=== PATIENT | female | born 1995 | race Caucasian/White ===

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

== ENCOUNTER 2017-10-16 22:59 | Emergency (ER) | payer OTHER ==
[2017-10-16] MEDS ORDERED: Ketorolac INJ* 30 MG/ML 1 ML VIAL IV PUSH ONE (23:22)
[2017-10-16 23:37] LABS: ABS Basophils 0.1 10^3/ul (0-0.2); ABS Eosinophils 0.2 10^3/ul (0-0.6); ABS Lymphocytes 3.4 10^3/ul (1.0-4.8); ABS Monocytes 0.9 10^3/ul (0-0.8); ABS Neutrophils 4.7 10^3/ul (1.5-7.7); ABS Nucleated RBC 0 10^3/ul; Hematocrit 39 % (35-47); Hemoglobin 13.2 g/dl (12.0-16.0); Lymphocyte % 36.9 % (25-47); Mean Corpuscular HGB Conc 34 g/dl (31-36); Mean Corpuscular Hemoglobin 29 pg (27-31); Mean Corpuscular Volume 85 fL (80-97); Mean Platelet Volume 7.5 um3 (7.4-10.4); Nucleated Red Blood Cells % 0.1; Platelet Count 305 10^3/ul (150-450); Red Blood Count 4.55 10^6/ul (4.0-5.4); Red Cell Distribution Width 13 % (10.5-15); White Blood Count 9.2 10^3/ul (3.5-10.8)
[2017-10-16 23:56] LABS: EGFR Non-African American 92.8 (>60)
[2017-10-17 00:48] VITALS: BP 117/65
--- NOTE | 2017-10-17 03:25 | ED ---
Edna Plascencia Emily, scribed for Go Leggett MD on 10/16/17 at 2325 . Abdominal Pain/Female - HPI Summary HPI Summary: This patient is a 22 year old F presenting to [facility] accompanied by friend with a chief complaint of LUQ abd pain radiating to left shoulder that began 2 days ago. The patient rates the pain 7/10 in severity. Symptoms aggravated by nothing. Symptoms alleviated by nothing. Patient reports SOB and slight cough. Patient denies fever and chills. - History of Current Complaint Chief Complaint: EDGeneral Stated Complaint: FLANK PAIN Time Seen by Provider: 10/16/17 23:16 Hx Obtained From: Patient Onset/Duration: Sudden Onset, Lasting Days, Still Present Timing: Constant Severity Initially: Severe Severity Currently: Severe Pain Intensity: 7 Pain Scale Used: 0-10 Numeric Location: Discrete At: LUQ Radiates: Yes Radiates to: Other - Positive L shoulder Aggravating Factor(s): Nothing Alleviating Factor(s): Nothing Associated Signs and Symptoms: Positive: Cough, Other: - Positive slight cough. Negative fever and chills Allergies/Adverse Reactions: Allergies Allergy/AdvReac Type Severity Reaction Status Date / Time No Known Allergies Allergy Verified 10/16/17 23:00 PMH/Surg Hx/FS Hx/Imm Hx Previously Healthy: No Endocrine/Hematology History: Denies: Hx Anticoagulant Therapy, Hx Blood Disorders Neurological History: Reports: Other Neuro Impairments/Disorders - previous concussions Denies: Hx Headaches Infectious Disease History: No Infectious Disease History: Denies: Traveled Outside the [place] in Last 30 Days - Family History Known Family History: Positive: None, Other - Negative pulmonary embolism - Social History Occupation: Student Lives: Dormitory/Roommates Alcohol Use: Occasionally Hx Substance Use: No Substance Use Type: Reports: None Hx Tobacco Use: No Smoking Status (MU): Never Smoked Tobacco Review of Systems Negative: Fever, Chills Positive: Shortness Of Breath, Cough Positive: Abdominal Pain All Other Systems Reviewed And Are Negative: Yes Physical Exam - Summary Physical Exam Summary: Appearance: Well appearing, no pain distress Skin: warm, dry, reflects adequate perfusion Head/face: normal Eyes: EOMI, KEELY ENT: normal Neck: supple, non-tender Respiratory: CTA, breath sounds present, tenderness in left chest wall Cardiovascular: RRR, pulses symmetrical Abdomen: non-tender, soft Bowel Sounds: present Musculoskeletal: normal, strength/ROM intact Neuro: normal, sensory motor intact, A&Ox3 Triage Information Reviewed: Yes Vital Signs On Initial Exam: Initial Vitals Temp Pulse Resp BP Pulse Ox 97.5 F 79 16 154/87 100 10/16/17 23:00 10/16/17 23:00 10/16/17 23:00 10/16/17 23:00 10/16/17 23:00 Vital Signs Reviewed: Yes Diagnostics - Vital Signs Vital Signs Temp Pulse Resp BP Pulse Ox 10/16/17 23:00 97.5 F 79 16 154/87 100 - Laboratory Lab Results: Lab Results 10/16/17 10/16/17 10/16/17 Range/Units 23:25 23:25 23:25 WBC 9.2 (3.5-10.8) 10^3/ul RBC 4.55 (4.0-5.4) 10^6/ul Hgb 13.2 (12.0-16.0) g/dl Hct 39 (35-47) % MCV 85 (80-97) fL MCH 29 (27-31) pg MCHC 34 (31-36) g/dl RDW 13 (10.5-15) % Plt Count 305 (150-450) 10^3/ul MPV 7.5 (7.4-10.4) um3 Neut % (Auto) 51.1 (38-83) % Lymph % (Auto) 36.9 (25-47) % Elliott % (Auto) 9.3 H (0-7) % Eos % (Auto) 2.0 (0-6) % Baso % (Auto) 0.7 (0-2) % Absolute Neuts (auto) 4.7 (1.5-7.7) 10^3/ul Absolute Lymphs (auto) 3.4 (1.0-4.8) 10^3/ul Absolute Monos (auto) 0.9 H (0-0.8) 10^3/ul Absolute Eos (auto) 0.2 (0-0.6) 10^3/ul Absolute Basos (auto) 0.1 (0-0.2) 10^3/ul Absolute Nucleated RBC 0 10^3/ul Nucleated RBC % 0.1 D-Dimer, Quantitative < 200 (Less Than 230) ng/mL Sodium 138 L (139-145) mmol/L Potassium 4.0 (3.5-5.0) mmol/L Chloride 104 (101-111) mmol/L Carbon Dioxide 27 (22-32) mmol/L Anion Gap 7 (2-11) mmol/L BUN 13 (6-24) mg/dL Creatinine 0.79 (0.51-0.95) mg/dL Est GFR ( Amer) 119.3 (>60) Est GFR (Non-Af Amer) 92.8 (>60) BUN/Creatinine Ratio 16.5 (8-20) Glucose 98 (70-100) mg/dL Calcium 9.5 (8.6-10.3) mg/dL Result Diagrams: 10/16/17 23:25 10/16/17 23:25 Lab Statement: Any lab studies that have been ordered have been reviewed, and results considered in the medical decision making process. - Radiology CXR Radiology Interpretation Completed By: ED Physician - CXR reveals, per ED physician, no acute findings - EKG 2339 Cardiac Rate: NL EKG Rhythm: Sinus Rhythm - [address] Segment: Normal EKG Interpretation: Nml axis intervals Re-Evaluation - Re-Evaluation First Eval Re-Evaluation Time: 00:30 Change: Improved Comment: Symptoms resolved with torridol Abdominal Pain Fem Course/Dx - Course Course Of Treatment: Left-sided chest pain without significant cough or wheezing. Pain is improved with Toradol. X-ray is negative and d-dimer is not detected. Patient discharged to follow up with primary care physician on when necessary NSAID. - Diagnoses Differential Diagnosis: Positive: ACS, Peptic Ulcer Disease, Pneumonia, Other - Pulmonary embolism Provider Diagnoses: Chest wall pain Discharge - Sign-Out/Discharge Documenting (check all that apply): Discharge/Admit/Transfer - Discharge - Discharge Plan Condition: Stable Disposition: HOME Patient Education Materials: Chest Wall Pain (ED) Referrals: [facility] [Primary Care Provider] - 1 Day (Follow up on 10/18.) Additional Instructions: Take Tylenol and Ibuprofen as needed. Deep breathing exercises. Return to the ED for new or worsening symptoms. - Billing Disposition and Condition Condition: STABLE Disposition: HOME The documentation as recorded by the Edna olmedo Emily accurately reflects the service I personally performed and the decisions made by Betsey lewis Kirk, MD.
--- NOTE | 2017-10-17 09:42 | RAD ---
INDICATION: Chest pain and flank pain. COMPARISON: No relevant prior exams available on the [facility] PACS for comparison. TECHNIQUE: Dual energy PA and routine lateral views of the chest were obtained. REPORT: Clear lungs and pleural spaces. Negative for pneumothorax. The heart, pulmonary vasculature, and mediastinal contours are unremarkable. Unremarkable osseous structures and soft tissue contours. IMPRESSION: No evidence for acute intrathoracic disease.
== END 2017-10-17 00:48 | disposition home or self-care (01) ==
LOC: ED 22:59
DX: R07.89 Other chest pain (principal)
CPT/HCPCS: 36415; 71046; 80048; 85025; 85379; 93005; 96374; 99283; J1885

== ENCOUNTER 2018-08-11 02:51 | Emergency (ER) | payer OTHER ==
[2018-08-11] MEDS ORDERED: NS 0.9% 1000 ML** 1,000 ML IV ONE (03:04)
[2018-08-11] MEDS ORDERED: Morphine VIAL* 10 MG/ML 1 ML VIAL IV ONE (03:05)
[2018-08-11] MEDS ORDERED: Metoclopramide IV* 5 MG/ML 2 ML VIAL IV SLOW PU ONE (03:05)
[2018-08-11] MEDS ORDERED: Ketorolac INJ* 30 MG/ML 1 ML VIAL IV PUSH ONE (03:05)
--- NOTE | 2018-08-11 03:09 | ED ---
Abdominal Pain/Female - HPI Summary HPI Summary: A 22 y/o female presents to [facility] with a chief complaint of right flank pain since 19:00 08/09/18. The patient came to the ED on 08/10/18 when she was diagnosed with a UTI. She reports that she had difficulty urinating the morning of 08/10/18 and that she was near syncope when waiting in line at [facility] [employer]. She also reports N/V. She denies burning with urinating. She went to [facility] who referred the patient back to the ED. She denies a PMHx and claims that she has not had problems like this before. Her LNMP was . At triage the patient rated her pain as an 8/10 in severity. - History of Current Complaint Chief Complaint: EDUrogenitalProblems Stated Complaint: FLANK PAIN Hx Obtained From: Patient Hx Last Menstrual Period: 07/15/18 Onset/Duration: Sudden Onset, Lasting Days, Still Present Timing: Constant Severity Initially: Severe Severity Currently: Severe Pain Intensity: 8 Pain Scale Used: 0-10 Numeric Location: Flank - right Radiates: No Character: Not Applicable Aggravating Factor(s): Nothing Alleviating Factor(s): Nothing Associated Signs and Symptoms: Positive: Nausea, Vomiting, Other: - difficulty urinating but no burning. Negative: Fever Allergies/Adverse Reactions: Allergies Allergy/AdvReac Type Severity Reaction Status Date / Time No Known Allergies Allergy Verified 08/11/18 02:56 PMH/Surg Hx/FS Hx/Imm Hx Endocrine/Hematology History: Denies: Hx Anticoagulant Therapy, Hx Blood Disorders, Hx Diabetes Cardiovascular History: Denies: Hx Hypertension Neurological History: Reports: Other Neuro Impairments/Disorders - previous concussions Denies: Hx Headaches Infectious Disease History: No Infectious Disease History: Denies: Traveled Outside the [place] in Last 30 Days - Family History Known Family History: Positive: Other - Negative pulmonary embolism - Social History Alcohol Use: Occasionally Hx Substance Use: No Substance Use Type: Reports: None Hx Tobacco Use: No Smoking Status (MU): Never Smoked Tobacco Review of Systems Negative: Fever Positive: Abdominal Pain, Vomiting, Nausea Positive: other - Positive: difficulty urinating but no burning All Other Systems Reviewed And Are Negative: Yes Physical Exam - Summary Physical Exam Summary: VITAL SIGNS: Reviewed. GENERAL: Patient is a well-developed and nourished FEMALE who is lying comfortable in the stretcher. Patient is not in any acute respiratory distress. HEAD AND FACE: No signs of trauma. No ecchymosis, hematomas or skull depressions. No sinus tenderness. EYES: PERRLA, EOMI x 2, No injected conjunctiva, no nystagmus. EARS: Hearing grossly intact. Ear canals and tympanic membranes are within normal limits. MOUTH: Oropharynx within normal limits. NECK: Supple, trachea is midline, no adenopathy, no JVD, no carotid bruit, no c- spine tenderness, neck with full ROM. CHEST: Symmetric, no tenderness at palpation LUNGS: Clear to auscultation bilaterally. No wheezing or crackles. CVS: Regular rate and rhythm, S1 and S2 present, no murmurs or gallops appreciated. ABDOMEN: Soft, Right CVA tenderness. No signs of distention. No rebound no guarding, and no masses palpated. Bowel sounds are normal. EXTREMITIES: FROM in all major joints, no edema, no cyanosis or clubbing. NEURO: Alert and oriented x 3. No acute neurological deficits. Speech is normal and follows commands. SKIN: Dry and warm Triage Information Reviewed: Yes Vital Signs On Initial Exam: Initial Vitals Temp Pulse Resp BP Pulse Ox 97.5 F 95 20 125/70 100 08/11/18 02:53 08/11/18 02:53 08/11/18 02:53 08/11/18 02:53 08/11/18 02:53 Vital Signs Reviewed: Yes Diagnostics - Vital Signs Vital Signs Temp Pulse Resp BP Pulse Ox 08/11/18 02:53 97.5 F 95 20 125/70 100 - Laboratory Result Diagrams: 08/11/18 03:17 08/11/18 03:17 Lab Statement: Any lab studies that have been ordered have been reviewed, and results considered in the medical decision making process. - CT abdomen/pelvis CT Interpretation Completed By: Radiologist Summary of CT Findings: 1. Mild right hydroureteronephrosis. 2. Calcification in the right pelvic area, suspicious for distal right ureteral calculus. ED physician has reviewed this imaging report. Abdominal Pain Fem Course/Dx - Course Course Of Treatment: A 22 y/o female presents to [facility] with a chief complaint of right flank pain since 19:00 08/09/18. The patient came to the ED on when she was diagnosed with a UTI. She reports that she had difficulty urinating the morning of 08/10/18 and that she was near syncope when [facility] in line [facility] [employer]. She also reports N/V. She denies burning with urinating. She went to [facility] who referred the patient back to the ED. She denies a PMHx and claims that she has not had problems like this before. Her LNMP was 07/15/18. At triage the patient rated her pain as an 8/10 in severity. The physical exam revealed right CVA tenderness. In the ED course the patient was given Sodium Chloride IV, 15mg Toradol IV, 10mg Reglan IV and 4mg Morphine IV. Lab results obtained and are WNL. Abdomen/pelvis CT impression : 1. Mild right hydroureteronephrosis. 2. Calcification in the right pelvic area, suspicious for distal right ureteral calculus. The patient will be discharged with presciptions for Motrin, Percocet and Flomax and instructed to follow up with Dr. Alexander, urology. She is agreeable with this plan. - Diagnoses Provider Diagnoses: Right ureteral stone, Renal colic Discharge - Sign-Out/Discharge Documenting (check all that apply): Patient Departure - DC Patient Received Moderate/Deep Sedation with Procedure: No - Discharge Plan Condition: Stable Disposition: HOME Prescriptions: Ibuprofen TAB* [Motrin TAB* 800 MG] 800 mg PO Q6H PRN #30 tab PRN Reason: Pain oxyCODONE/Acetamin 5/325 MG* [Percocet 5/325 TAB*] 1 tab PO Q6H PRN #14 tab MDD 4 PRN Reason: Pain Tamsulosin CAP* [Flomax CAP*] 0.4 mg PO BEDTIME #7 cap Patient Education Materials: Renal Colic (ED) Referrals: [facility] [[email or web address], APPLICATION, OTHER] - (1-2 days) Arya Alexander MD [Medical Doctor] - Additional Instructions: Follow up with Dr. Alexander, urology. RETURN TO THE EMERGENCY DEPARTMENT FOR CHANGING OR WORSENING SYMPTOMS. FOLLOW UP WITH PCP IN 1-2 DAYS. - Billing Disposition and Condition Condition: STABLE Disposition: Home - Attestation Statements Document Initiated by Scribe: Yes Documenting Scribe: Gordon Chen Provider For Whom Scribe is Documenting (Include Credential): Alisha Hurt MD Scribe Attestation: I, Gordon Chen, scribed for Alisha Hurt MD on 08/11/18 at 0613. Scribe Documentation Reviewed: Yes Provider Attestation: The documentation as recorded by the scribe, Gordon Chen accurately reflects the service I personally performed and the decisions made by me, Alisha Hurt MD Status of Scribe Document: Viewed
[2018-08-11 03:27] LABS: ABS Basophils 0 10^3/ul (0-0.2); ABS Eosinophils 0.2 10^3/ul (0-0.6); ABS Lymphocytes 2.8 10^3/ul (1.0-4.8); ABS Neutrophils 5.5 10^3/ul (1.5-7.7); ABS Nucleated RBC 0 10^3/ul; Eosinophil % 1.6 %; Hematocrit 39 % (35-47); Hemoglobin 12.8 g/dl (12.0-16.0); Mean Corpuscular HGB Conc 33 g/dl (31-36); Mean Corpuscular Hemoglobin 28 pg (27-31); Mean Corpuscular Volume 86 fL (80-97); Nucleated Red Blood Cells % 0; Platelet Count 288 10^3/ul (150-450); Red Cell Distribution Width 14 % (10.5-15); White Blood Count 9.4 10^3/ul (3.5-10.8)
[2018-08-11 03:43] LABS: ALT 12 U/L (7-52); AST 13 U/L (13-39); Albumin 4.2 g/dL (3.2-5.2); Albumin/Globulin Ratio 1.7 (1-3); Alkaline Phosphatase 67 U/L (34-104); Anion Gap 11 mmol/L (2-11); BUN/Creatinine Ratio 15.2 (8-20); Blood Urea Nitrogen 14 mg/dL (6-24); C Reactive Protein 5.09 mg/L (<8.01); CO2 Carbon Dioxide 20 mmol/L (22-32); Chloride 106 mmol/L (101-111); EGFR African American 94.2 (>60); EGFR Non-African American 77.8 (>60); Globulin 2.5 g/dL (2-4); Glucose 115 mg/dL (70-100); Magnesium 1.9 mg/dL (1.9-2.7); Potassium 3.1 mmol/L (3.5-5.0); Sodium 137 mmol/L (135-145); Total Protein 6.7 g/dL (6.4-8.9)
[2018-08-11 03:49] LABS: HCG Pregnancy < 0.60 mIU/mL
[2018-08-11] MEDS ORDERED: Potassium Chlor TAB* 20 MEQ TAB.ER PO ONE (03:53)
[2018-08-11] MEDS ORDERED: Tamsulosin CAP* 0.4 MG PO ONE (04:26)
[2018-08-11 04:44] LABS: Urine Appearance Cloudy; Urine Bacteria 1+ (Absent); Urine Bilirubin Negative (Negative); Urine Blood 3+ (Negative); Urine Color Amber; Urine Glucose Negative (Negative); Urine Ketones 1+ (Negative); Urine Nitrite Negative (Negative); Urine Protein 1+(30 mg/dL) (Negative); Urine Red Blood Cell 3+(>10/hpf) (Absent); Urine Specific Gravity 1.026 (1.010-1.030); Urine Squamous Epithelial Cell Present (Absent); Urine Urobilinogen Negative (Negative); Urine White Blood Cell 1+(6-10/hpf) (Absent)
[2018-08-11 04:45] VITALS: BP 126/74
== END 2018-08-11 04:51 | disposition home or self-care (01) ==
LOC: ED 02:51
DX: N23 Unspecified renal colic (principal); N20.0 Calculus of kidney; R10.84 Generalized abdominal pain; R11.2 Nausea with vomiting, unspecified
CPT/HCPCS: 36415; 74176; 80053; 81003; 83735; 84702; 85025; 86140; 96361; 96374; 96375; 99283; A9270-GY; J1885; J2270; J2765

== ENCOUNTER 2018-08-14 08:42 | Emergency (ER) | payer OTHER ==
[2018-08-14] MEDS ORDERED: NS 0.9% 1000 ML** 1,000 ML IV ONE (09:31)
[2018-08-14] MEDS ORDERED: Ketorolac INJ* 30 MG/ML 1 ML VIAL IV PUSH ONE (09:31)
[2018-08-14] MEDS ORDERED: HYDROmorphone INJ1* 1 MG/ML SYRINGE IV SLOW PU ONE (09:31)
[2018-08-14] MEDS ORDERED: Ondansetron INJ* 2 MG/ML VIAL IV ONE (09:31)
--- NOTE | 2018-08-14 09:38 | ED ---
Abdominal Pain/Female - HPI Summary HPI Summary: This patient is a 22 year old F presenting to [facility] accompanied by two women with a chief complaint of worsening, intermittent right flank pain since 3 days ago. She was diagnosed with a 3mm kidney stone 3 days ago and was given Flomax, Ibuprofen, and Oxycodone, all of which failed to alleviate her symptoms. The patient rates the pain 8/10 in severity. Patient reports nausea and vomiting. Denies fever. She last took Flomax at 00:00, Ibuprofen at 02:00, and Oxycodone at 04:00. The pain has been consistent this morning since 02:00, which is the longest it has lasted. Her other episodes of pain lasted 2 hours and 4 hours, while this episode has lasted about 7.5 hours so far. Vitals in the room: HR 62 bpm BP 126/84. - History of Current Complaint Chief Complaint: EDFlankPain Stated Complaint: RIGHT FLANK PAIN Time Seen by Provider: 08/14/18 09:13 Hx Obtained From: Patient Hx Last Menstrual Period: 07/15/18 Onset/Duration: Gradual Onset, Lasting Hours - 7.5 Timing: Constant Severity Currently: Moderate Pain Intensity: 8 Pain Scale Used: 0-10 Numeric Location: Flank - right Alleviating Factor(s): Nothing Associated Signs and Symptoms: Positive: Nausea, Vomiting Allergies/Adverse Reactions: Allergies Allergy/AdvReac Type Severity Reaction Status Date / Time No Known Allergies Allergy Verified 08/11/18 02:56 PMH/Surg Hx/FS Hx/Imm Hx Endocrine/Hematology History: Denies: Hx Anticoagulant Therapy, Hx Blood Disorders, Hx Diabetes Cardiovascular History: Denies: Hx Hypertension History: Reports: Hx Kidney Stones Neurological History: Reports: Other Neuro Impairments/Disorders - previous concussions Denies: Hx Headaches Infectious Disease History: No Infectious Disease History: Denies: Traveled Outside the [place] in Last 30 Days - Family History Known Family History: Positive: Other - Negative pulmonary embolism - Social History Alcohol Use: Occasionally Hx Substance Use: No Substance Use Type: Reports: None Hx Tobacco Use: No Smoking Status (MU): Never Smoked Tobacco Review of Systems Negative: Fever Positive: Abdominal Pain - right flank pain, Vomiting, Nausea All Other Systems Reviewed And Are Negative: Yes Physical Exam - Summary Physical Exam Summary: Appearance: The patient is well-nourished in moderate distress and in no acute pain. Skin: The skin is warm and dry and skin color reflects adequate perfusion. HEENT: The head is normocephalic and atraumatic. The pupils are equal and reactive. The conjunctivae are clear and without drainage. Nares are patent and without drainage. Mouth reveals moist mucous membranes and the throat is without erythema and exudate. The external ears are intact. The ear canals are patent and without drainage. The tympanic membranes are intact. Neck: The neck is supple with full range of motion and non-tender. There are no carotid bruits. There is no neck vein distension. Respiratory: Chest is non-tender. Lungs are clear to auscultation and breath sounds are symmetrical and equal. Cardiovascular: Heart is regular rate and rhythm. There is no murmur or rub auscultated. There is no peripheral edema and pulses are symmetrical and equal. Abdomen: The abdomen is soft and non-tender. There are normal bowel sounds heard in all four quadrants and there is no organomegaly palpated. Musculoskeletal: There is no back tenderness noted. Extremities are non-tender with full range of motion. There is good capillary refill. There is no peripheral edema or calf tenderness elicited. Neurological: Patient is alert and oriented to person, place and time. The patient has symmetrical motor strength in all four extremities. Cranial nerves are grossly intact. Deep tendon reflexes are symmetrical and equal in all four extremities. Psychiatric: The patient has an appropriate affect and does not exhibit any anxiety or depression Triage Information Reviewed: Yes Vital Signs On Initial Exam: Initial Vitals Temp Pulse Resp BP Pulse Ox 97.0 F 67 24 142/80 99 08/14/18 08:51 08/14/18 08:51 08/14/18 08:51 08/14/18 08:51 08/14/18 08:51 Vital Signs Reviewed: Yes Diagnostics - Vital Signs Vital Signs Temp Pulse Resp BP Pulse Ox 08/14/18 09:05 61 99 08/14/18 08:51 97.0 F 60 24 142/80 100 - Laboratory Result Diagrams: 08/14/18 09:40 Lab Statement: Any lab studies that have been ordered have been reviewed, and results considered in the medical decision making process. Abdominal Pain Fem Course/Dx - Course Course Of Treatment: Ms. Dickens has known right-sided UVJ stone that is about 2 mm. She has a moderate to mild hydronephrosis with that on CT scan from yesterday. She was seen in the offices of Dr. Ball yesterday in follow-up and an ultrasound was obtained. She is on oxycodone, ibuprofen and Flomax. About 4 in the morning she woke up with severe right flank pain which has continued until this time and she comes in for symptomatic relief. She was not toxic in appearance was in pain clearly. She had stable vital signs. UA was obtained and showed no sign of infection. She was given IV fluids and pain medication and got significant relief. I spoke with Dr. Alexander. The patient's arrival and Dr. Ball after the patient had arrived in the plan is to follow-up with Dr. amber coello tomorrow morning. - Diagnoses Provider Diagnoses: Kidney stone Discharge - Sign-Out/Discharge Documenting (check all that apply): Patient Departure - discharge Patient Received Moderate/Deep Sedation with Procedure: No - Discharge Plan Condition: Stable Disposition: HOME Patient Education Materials: Kidney Stones (ED) Referrals: Gian Ball MD [Medical Doctor] - 3 Days Additional Instructions: Please follow up with Dr. aBll in the next three days - Billing Disposition and Condition Condition: STABLE Disposition: Home - Attestation Statements Document Initiated by Scribe: Yes Documenting Scribe: Geoff Owens Provider For Whom Lynda is Documenting (Include Credential): Pedro Pablo Ball MD Scribe Attestation: IGeoff, scribed for Pedro Pablo Ball MD on 08/14/18 at 1920. Scribe Documentation Reviewed: Yes Provider Attestation: The documentation as recorded by the Geoff olmedo accurately reflects the service I personally performed and the decisions made by me, Pedro Pablo Ball MD Status of Scribe Document: Viewed
[2018-08-14 09:49] LABS: ABS Basophils 0 10^3/ul (0-0.2); ABS Eosinophils 0 10^3/ul (0-0.6); ABS Lymphocytes 0.8 10^3/ul (1.0-4.8); ABS Monocytes 0.8 10^3/ul (0-0.8); ABS Neutrophils 9.7 10^3/ul (1.5-7.7); ABS Nucleated RBC 0 10^3/ul; Eosinophil % 0.1 %; Hematocrit 36 % (35-47); Hemoglobin 11.8 g/dl (12.0-16.0); Mean Corpuscular HGB Conc 32 g/dl (31-36); Mean Corpuscular Hemoglobin 28 pg (27-31); Mean Corpuscular Volume 87 fL (80-97); Nucleated Red Blood Cells % 0; Platelet Count 242 10^3/ul (150-450); Red Blood Count 4.17 10^6/ul (4.00-5.40); Red Cell Distribution Width 14 % (10.5-15); White Blood Count 11.3 10^3/ul (3.5-10.8)
[2018-08-14 11:50] LABS: Urine Appearance Clear; Urine Bacteria Absent (Absent); Urine Bilirubin Negative (Negative); Urine Blood 2+ (Negative); Urine Color Straw; Urine Glucose Negative (Negative); Urine Ketones 1+ (Negative); Urine Nitrite Negative (Negative); Urine Protein Negative (Negative); Urine Red Blood Cell 1+(3-5/hpf) (Absent); Urine Specific Gravity 1.008 (1.010-1.030); Urine Squamous Epithelial Cell Present (Absent); Urine Urobilinogen Negative (Negative); Urine White Blood Cell Trace(0-5/hpf) (Absent)
[2018-08-14 12:33] VITALS: BP 125/71
== END 2018-08-14 12:32 | disposition home or self-care (01) ==
LOC: ED 08:42
DX: N20.0 Calculus of kidney (principal); R11.2 Nausea with vomiting, unspecified; R10.84 Generalized abdominal pain
CPT/HCPCS: 36415; 81003; 81015; 83605; 85025; 86140; 87086; 96361; 96374; 96375; 99284; J1170; J1885; J2405